=== PATIENT | male | born 1965 | race Two or more races ===

== ENCOUNTER 2020-01-10 00:24 | Inpatient (IN) | payer OTHER ==
[~2020-01-10] VITALS: Ht 182.9 cm; Wt 95.3 kg
--- NOTE | 2020-01-10 00:30 | NUR ---
PT [id number]. SOB X 3-4 HOURS AGO. PER RA, GIVEN ALBUTEROL 5MG. PT RR EVEN AND UNLABORED. VSS. SAT 100 ON ROOM AIR. AWAITING MD FOR EVAL. ROLAND SHARPE TO MON.
[2020-01-10] MEDS ORDERED: ASPIRIN 81 MG TAB.CHEW PO ONE (01:00)
[2020-01-10] MEDS ORDERED: NITROGLYCERIN 0.4 MG/TAB BOTTLE ONE ×2 (01:00→12:05)
[2020-01-10] MEDS ORDERED: ASPIRIN 81 MG TAB.CHEW ONE (01:00)
[2020-01-10] MEDS ORDERED: NITROGLYCERIN 0.4 MG/TAB BOTTLE SL ONE (01:00)
[2020-01-10 01:16] LABS: BASOPHILS # (AUTO) 0.1 /CMM (0.0-0.2); BASOPHILS % (AUTO) 1.1 % (0.0-2.0); EOSINOPHILS % (AUTO) 3.3 % (0.0-6.0); HEMATOCRIT 37 % (39-51); HEMOGLOBIN 11.5 g/dL (13.5-17.5); LYMPHOCYTES # (AUTO) 1.4 /CMM (0.8-4.8); LYMPHOCYTES % (AUTO) 22.9 % (20.0-44.0); MEAN CORPUSCULAR HGB CONC 31 g/dl (31.0-36.0); MEAN CORPUSCULAR VOLUME 82 fL (80-96); MONOCYTES # (AUTO) 0.6 /CMM (0.1-1.30); MONOCYTES % (AUTO) 9.1 % (2.0-12.0); NEUTROPHILS # (AUTO) 3.9 /CMM (1.8-8.9); NEUTROPHILS % (AUTO) 63.6 % (43.0-81.0); PLATELET COUNT (AUTO) 287 /CMM (150-450); RED BLOOD CELL COUNT(AUTO) 4.51 MIL/uL (4.5-6.0); WHITE BLOOD COUNT (AUTO) 6.1 K/uL (4.3-11.0)
--- NOTE | 2020-01-10 01:21 | NUR ---
xray at bedside
[2020-01-10 01:26] LABS: CALCIUM, SERUM 8.2 mg/dL (8.5-10.1); CREATININE 1.1 mg/dL (0.6-1.3); POTASSIUM 4.6 mmol/L (3.5-5.1)
--- NOTE | 2020-01-10 02:41 | NUR ---
Patient is resting comfortably in bed with eyes closed. Easily aroused. VSS.
--- NOTE | 2020-01-10 03:04 | NUR ---
Patient is resting comfortably in bed with eyes closed. VSS.
[2020-01-10] MEDS ORDERED: DIGO125T PO (04:29)
[2020-01-10] MEDS ORDERED: CARV25TA2 PO (04:30)
[2020-01-10] MEDS ORDERED: RIVA10TA PO (04:31)
[2020-01-10] MEDS ORDERED: FURO40TA5 PO (04:31)
[2020-01-10] MEDS ORDERED: ATOR40TA PO (04:34)
[2020-01-10] MEDS ORDERED: LOSA25TA27 PO (04:34)
[2020-01-10] MEDS ORDERED: ASPI-1169 PO (04:35)
[2020-01-10 05:00] VITALS: BP 147/84
--- NOTE | 2020-01-10 05:00 | NUR ---
rn notes: arrived to the unit, received report from raul parnell.
--- NOTE | 2020-01-10 05:00 | NUR ---
PT TRANSFERED PER [facility] PROTOC[facility]
[2020-01-10 05:15] VITALS: BP 147/84
[2020-01-10] MEDS ORDERED: ACETAMINOPHEN 325 MG TABLET PO PRN (05:30)
--- NOTE | 2020-01-10 05:55 | NUR ---
ADMISSION NOTES: RECEIVED REPORT FROM CLIVE RAMIRES RN, PER REPORT ADMITTING ORDERS OBTAINED. PT WAS BROUGHT TO THE UNIT VIA GURNEY. TRANSFERRED TO BED. PT A/O X3 PER REPORT, ON RA RESPIRATIONS EVEN AND UNLABORED HOWEVER VERY DROWSY, SLEEPY. PT DENIES ANY SOB AND CHEST PAIN. IV ACCESS PATENT AND FLUSHING WELL, ON HL. UNABLE TO DO SKIN ASSESSMENT PT VERY SLEEPY AND DROWSY, WOKE THE PT UP MANY TIMES, WILL OPEN HIS EYES AND SAY ITS OKAY, THEN WILL GO BACK TO SLEEP. ALSO PT GOT UPSET THE RN PLASTICS CAME TO DRAW BLOOD AND HAD TO POKE HIM TWICE, SINCE THEN PT CHANGED HIS MOOD AND REFUSED SKIN ASSESSMENT, INVENTORY OF BELONGING COMPLETED BY JANNETTE HAWKINS AND ASSIGNED RN. PT HAS 2 LUGGAGE, SEARCHED AND REMOVED ALL CONTRABAND AND HOME MEDICATION AND MARIJUANA. FILLED HOME MEDS BOTTLE WILL BE SEND TO PHARMACY IN AM, NO NARCOTICS NOTED, PER CONTRABAND AND MARIJUANA KEPT IN 3WEST SAFE. TRIED TO ORIENT PT TO UNIT POLICY AND HOURLY ROUNDING, USE OF CALL LIGHT SYSTEM, HOWEVER DUE TO DROWSINESS, PT ALREADY SLEEPING WHILE RN HAVEN'T FINISH EXPLAINING. PLACED ON TELE MONITORING, ON AFIB HR 71. VS TAKEN AND RECORDED. SAFETY PRECAUTIONS FOR FALL INITIATED, CALL LIGHT IN REACH, WILL CONTINUE MONITORING PT.
--- NOTE | 2020-01-10 06:04 | NUR ---
RN NOTES: UNABLE TO GET CONSENT FOR CT-ANGIO DUE TO PT STATUS, VERY SLEEPY/DROWSY, UNABLE TO GET DEFINITE INFORMATION.
--- NOTE | 2020-01-10 06:15 | NUR ---
RN NOTES: PT AMBULATE TO THE BATHROOM WITH STEADY GAIT AT 0615AM, VOIDED FREELY. THEN ASSISTED BACK TO BED.
--- NOTE | 2020-01-10 06:37 | NUR ---
RN CLOSING NOTES: PT REMAINS SLEEPING, RESPONSIVE TO LIGHT TOUCH, WILL WAKE UP THEN DOZE OFF AGAIN, IV ACCESS REMAINS PATENT AND FLUSHING WELL, ON HL, NO S/S OF IV INFILTRATION NOTED. REFUSED SCD DESPITE PROVIDING EDUCATION, STILL REFUSING SKIN ASSESSMENT. CURRENTLY NPO FOR CT ANGIO WITH 3D IMAGE, WILL RELAY TO DAY RN IN OBTAINING CONSENT. REMAINS ON TELE AFB HR 70. APPEARS CALM AND COMFORTABLE, NO FACIAL GRIMACE NOTED, VS REMAINS STABLE NEEDS ATTENDED. SAFETY PRECAUTIONS FOR FALL REMAINS ENGAGED, CALL LIGHT IN REACH, WILL ENDORSE TO DAY RN FOR CONTINUITY OF CARE.
--- NOTE | 2020-01-10 07:39 | NUR ---
DIGITAL EXPERIENCE MANAGER OPENING NOTE RECEIVED PATIENT IN BED SLEEPING COMFORTABLY. PATIENT IN NO ACUTE DISTRESS. NO SOB NOTED. PATIENT BREATHING IS EVEN AND UNLABORED. PATIENT ON TELE MONITORING READING AFIB HR 79. PATIENT BED ALARM IS ON. SAFETY PRECAUTIONS IN PLACE. PATIENT BED IS IS LOCKED AND IN LOWEST POSITION. CALL LIGHT WITHIN REACH. WILL CONTINUE TO MONITOR.
[2020-01-10 08:00] VITALS: BP 137/90
[2020-01-10] MEDS: ASPIRIN 81 MG TAB.CHEW PO SCH (08:36)
[2020-01-10] MEDS: LOSARTAN POTASSIUM 25 MG TABLET PO SCH (08:36)
[2020-01-10] MEDS: CARVEDILOL 12.5 MG TABLET PO SCH (08:37)
[2020-01-10] MEDS: FUROSEMIDE 40 MG TABLET PO SCH (08:37)
[2020-01-10] MEDS ORDERED: IV NS 0.9% 250 ML IV ONE (10:48)
[2020-01-10] MEDS ORDERED: IOHEXOL-350 100 ML VIAL IV ONE (10:48)
[2020-01-10] MEDS ORDERED: METOPROLOL TARTRATE INJ 5 MG/5 ML AMPUL ONE ×2 (11:11→11:30)
--- NOTE | 2020-01-10 11:28 | NUR ---
PRELIMINARY ECHOCARDIOGRAM SHOWED EF 25-30%~. RN ADVISED OF INITIAL FINDING.
[2020-01-10] MEDS ORDERED: DIGOXIN 0.125 MG TABLET PO SCH (13:00)
[2020-01-10 16:00] VITALS: BP 127/74
[2020-01-10] MEDS ORDERED: RIVAROXABAN 10 MG TABLET PO SCH (17:00)
--- NOTE | 2020-01-10 17:00 | NUR ---
GANG KNIFE FISH CHOPPER NOTE DR. DUTTA INQUIRED ABOUT CTA RESULTS. NO RESULTS AT THIS TIME FOR THE CTA HEART. CALLED [facility], AND [facility] STATED TO CALL [facility] TO HAVE READING FOR CTA DONE SOONER. CALLED [facility] AND THEY STATED IT WILL BE DONE SOON THEY HAVE A TECH AVAILABLE FOR READING. CALLED BACK TO [facility] IN RADIOLOGY FOR READING BECAUSE RESULTS HAVE NOT SHOWN. PER [facility] THEY HAVE NO TECH AT THIS TIME FOR READING THE CTA.
[2020-01-10] MEDS ORDERED: ATORVASTATIN 40 MG TABLET PO SCH (18:00)
--- NOTE | 2020-01-10 18:18 | NUR ---
FERRY BOAT CAPTAIN NOTES CTA RESULTS CAME IN FROM [facility], DR. GUERRIER REPORTED RESULTS. NOTIFIED DR. DUTTA AND MADE AWARE AT THIS TIME.
--- NOTE | 2020-01-10 18:27 | NUR ---
TREATING PLANT PUMPER NOTE DR. DUTTA NOTIFIED OF CTA RESULTS. PER MD NEEDS TO BE TRANSFERRED FOR HEART CATH. NOTIFIED [facility]NAG[facility] FOR ARRANGEMENT.
--- NOTE | 2020-01-10 18:45 | NUR ---
JOB INTERVIEWER CLOSING NOTE PATIENT IN BED RESTING COMFORTABLY. PATIENT IN NO ACUTE DISTRESS. NO SOB NOTED. PATIENT BREATHING IS EVEN AND UNLABORED. PATIENT KEPT CLEAN, DRY AND COMFORTABLE THROUGHOUT SHIFT. PATIENT NEEDS AND CONCERNS ADDRESSED. ENDORSED DISCHARGE TO NEON TECHNICIAN, AWAITING CONFIRMATION WITH [facility] WITH DISCHARGE PLANNING TO TRANSFER WITH [facility] CATH. PATIENT ON CARDIAC MONITORING READING AFIB HR 78. PATIENT BED IS LOCKED AND IN LOWEST POSITION. CALL LIGHT WITHIN REACH. WILL ENDORSE CARE TO PM SHIFT FOR [facility].
[2020-01-10 20:26] VITALS: BP 143/94
--- NOTE | 2020-01-10 20:28 | NUR ---
rn acute dialysis: received report form ashley parnell at 1905. pt in bed, sleeping, responsive to tactile stimuli. pt is a/o x3 on ra denies any chest pain or sob at this time. iv access patent and flushing well, on hl. pt prefers to wear street clothes. pt s/p cta today, result relayed to dr juarez, with order for dc and transfer to higher level of care-contracted hospital- [facility] on board-awaiting for hospital acceptance possibly [facility], most likely transfer will be tomorrow. safety precautions for fall initiated, call light in reach, will continue monitoring pt.
[2020-01-11] VITALS: BP 124/75
[2020-01-11 04:00] VITALS: BP 129/92
--- NOTE | 2020-01-11 06:41 | NUR ---
END OF SHIFT REPORT: PT ABLE TO SLEEP WELL THE ENTIRE NIGHT. DENIES ANY SOB AND CHEST PAIN. IV ACCESS REMAINS PATENT AND FLUSHING WELL, ON HL. NO S/S OF IV INFILTRATION NOTED. REMAINS AFIB HR 71. FOR TRANSFER TO HIGHER LEVEL OF CARE WITH CONTRACTED HOSPITAL,CM ON BOARD TO ASSIST. FOR LEFT HEART CATH DUE TO SEVERE STENOSIS, EF 20-25%. VS REMAINS STABLE, NEEDS ATTENDED. SAFETY PRECAUTIONS FOR FALL REMAINS ENGAGED, CALL LIGHT IN REACH, WILL ENDORSE TO DAY RN FOR CONTINUITY OF CARE.
--- NOTE | 2020-01-11 07:30 | NUR ---
Tele/RN Opening note Received patient AOx4, Able to responds all stimuli. Pt does no c/o pain or any discomfort. Skin is warm to touch, clean/dry, intact IV site. Respiratory even and unlabored, no sob or distress observed. Kept lower position of bed with elevated HOB. Call light within reach, will continue to monitor.
[2020-01-11 08:00] VITALS: BP 150/94
[2020-01-11] MEDS: FUROSEMIDE 40 MG TABLET PO SCH (09:08)
[2020-01-11] MEDS: ASPIRIN 81 MG TAB.CHEW PO SCH (09:08)
[2020-01-11] MEDS: LOSARTAN POTASSIUM 25 MG TABLET PO SCH (09:09)
[2020-01-11] MEDS: CARVEDILOL 12.5 MG TABLET PO SCH (09:09)
[2020-01-11 12:00] VITALS: BP 127/71
--- NOTE | 2020-01-11 13:30 | NUR ---
Patient transferred to [facility], given report [facility]/Tasha RN at [phone], returned all belongings to patient. Also given discharge instruction to patient. Patient in stable condition, refused take wound picture.
--- NOTE | 2020-01-12 08:08 | NUR ---
Social service consult requested by Dr Lujan for homelessness. [facility] is unable to assess pt due to pt being transferred to [facility] on 01/11/2020.
== END 2020-01-11 13:25 | disposition short-term general hospital (02) | DRG 198 ==
LOC: ER 00:25 → TELE 04:35
PROVIDERS: ADMIT Internal Medicine; ATTEND Internal Medicine
DX: I25.110 Atherosclerotic heart disease of native coronary artery with unstable angina pectoris (principal); I11.0 Hypertensive heart disease with heart failure; I50.22 Chronic systolic (congestive) heart failure; I48.20 Chronic atrial fibrillation, unspecified; Z59.0 Homelessness; Z79.01 Long term (current) use of anticoagulants; Z95.5 Presence of coronary angioplasty implant and graft; I25.5 Ischemic cardiomyopathy; I25.2 Old myocardial infarction; Z79.899 Other long term (current) drug therapy
CPT/HCPCS: 36415; 71045-TC; 75574; 80048-TC; 80162-TC; 84484-TC; 85025-TC; 85610-TC; 85730-TC; 87081-TC; 93307-TC; G0378; J3490; J7050; Q9967

== ENCOUNTER 2020-04-29 19:58 | Emergency (ER) | payer OTHER ==
[~2020-04-29] VITALS: Ht 182.9 cm; Wt 95.3 kg
[~2020-04-29 19:58] MED LIST: ASPI-1169 PO; ATOR40TA PO; CARV25TA2 PO; DIGO125T PO; FURO40TA5 PO; LOSA25TA27 PO; RIVA10TA PO
[2020-04-29] MEDS ORDERED: oxyCODONE/APAP (5/325 MG) 1 UDTAB TABLET ONE ×2 (20:35→20:37)
[2020-04-29] MEDS: oxyCODONE/APAP (5/325 MG) 1 UDTAB TABLET PO ONE (20:39)
--- NOTE | 2020-04-29 20:40 | NUR ---
PATIENT CAME TO ER BED 10 C/O LOWER ABDOMINAL PAIN. PATIENT STATES THAT HE HAS HX OF HERNIA. AAOX4. NO SOB. BREATHING EVENLY AND UNLABORED ON ROOM AIR.
[2020-04-29 21:41] VITALS: BP 132/88
--- NOTE | 2020-04-29 21:41 | NUR ---
Patient discharged to home in stable condition. Written and verbal after care instructions given. Patient verbalizes understanding of instruction.
== END 2020-04-29 21:42 | disposition home or self-care (01) ==
LOC: ER 20:03
DX: M25.521 Pain in right elbow (principal); K40.90 Unilateral inguinal hernia, without obstruction or gangrene, not specified as recurrent; I10 Essential (primary) hypertension; I25.2 Old myocardial infarction; Z95.5 Presence of coronary angioplasty implant and graft; Z88.8 Allergy status to other drugs, medicaments and biological substances; Z79.82 Long term (current) use of aspirin; Z79.899 Other long term (current) drug therapy
CPT/HCPCS: 73080-TC

== ENCOUNTER 2020-06-05 00:35 | Inpatient (IN) | payer OTHER ==
[~2020-06-05] VITALS: Ht 180.3 cm; Wt 97.3 kg
[2020-06-05 00:57] LABS: BASOPHILS # (AUTO) 0.1 /CMM (0.0-0.2); BASOPHILS % (AUTO) 1.2 % (0.0-2.0); EOSINOPHILS % (AUTO) 0.6 % (0.0-6.0); HEMATOCRIT 37 % (39-51); HEMOGLOBIN 11.5 g/dL (13.5-17.5); LYMPHOCYTES # (AUTO) 1.3 /CMM (0.8-4.8); LYMPHOCYTES % (AUTO) 24.4 % (20.0-44.0); MEAN CORPUSCULAR HGB CONC 31 g/dl (31.0-36.0); MEAN CORPUSCULAR VOLUME 83 fL (80-96); MONOCYTES # (AUTO) 0.4 /CMM (0.1-1.30); MONOCYTES % (AUTO) 8.1 % (2.0-12.0); NEUTROPHILS # (AUTO) 3.4 /CMM (1.8-8.9); NEUTROPHILS % (AUTO) 65.7 % (43.0-81.0); PLATELET COUNT (AUTO) 267 /CMM (150-450); RED BLOOD CELL COUNT(AUTO) 4.49 MIL/uL (4.5-6.0); WHITE BLOOD COUNT (AUTO) 5.2 K/uL (4.3-11.0)
[2020-06-05 01:10] LABS: CALCIUM, SERUM 8.5 mg/dL (8.5-10.1); CREATININE 1.8 mg/dL (0.6-1.3); POTASSIUM 4.5 mmol/L (3.5-5.1)
--- NOTE | 2020-06-05 01:11 | NUR ---
BIB EMS C/O SOB X1 DAY. "I FEEL LIKE I CANT CATCH MY BREATH. I WAS TESTED FOR COVID-19 X2 AND BOTH WAS NEGATIVE" PT AOX4, PT NOTED SOB, HOWEVER LUNG SOUNDS CLEAR, NO NVD AT THIS TIME. PT GOWNED AND PLACED ON MONITOR WAITING FOR MD TOMLINSON.
[2020-06-05] MEDS ORDERED: DILTIAZEM HCL 25 MG IV ONE ×2 (01:15→02:21)
[2020-06-05 01:23] LABS: ALBUMIN 2.9 g/dL (3.4-5.0); BILIRUBIN,DIRECT 0.9 mg/dL (0.0-0.2); BILIRUBIN,TOTAL 2.1 mg/dL (0.2-1.0); TOTAL PROTEIN, SERUM 8.2 g/dL (6.4-8.2)
[2020-06-05] MEDS ORDERED: DILTIAZEM HCL 50 MG IV IV ONE (01:30)
--- NOTE | 2020-06-05 01:33 | NUR ---
COVID SWAB SENT TO LAB
[2020-06-05] MEDS ORDERED: FUROSEMIDE 40 MG/4 ML VIAL IV ONE (02:00)
[2020-06-05] MEDS ORDERED: FUROSEMIDE 40 MG/4 ML VIAL ONE (02:02)
[2020-06-05] MEDS ORDERED: DILTIAZEM HCL IV 125 MG in IV NS 0.9% 100 ML IV PRN (02:30)
--- NOTE | 2020-06-05 02:33 | NUR ---
CALLED [facility], SPOKE TO KIT FOR F/U PENDING CXR RESULTS. TO BE READ NEXT.
--- NOTE | 2020-06-05 03:37 | NUR ---
REPORT GIVEN TO SHERLY SHABAZZ FOR CONTINUITY OF CARE BED 307-2
--- NOTE | 2020-06-05 03:47 | NUR ---
PT TRANSFERRED TO TELE PER [facility]S PROTOCOL.
--- NOTE | 2020-06-05 03:50 | NUR ---
MOTORIZED SQUAD CAPTAIN: ADMISSION 54 y/o male admitted for shortness of breath, Dx Heart Failure. A/O x4 skin checked done with JANNETTE Stout. Right elbow redness and swelling, denies pain. On O2 2L via NC, dyspnea with exertion, O2 sat in mid 90's. Patient ambulates independently, reports he's homeless. Safety measure discussed, verbalized understanding.
[2020-06-05 03:51] VITALS: BP 144/80
[2020-06-05 04:00] VITALS: BP 144/80
[2020-06-05] MEDS ORDERED: ZOLPIDEM TARTRATE 5 MG TABLET PO PRN (04:30)
[2020-06-05] MEDS ORDERED: MAGNESIUM HYDROXIDE 30 ML UDC PO PRN (04:30)
[2020-06-05] MEDS ORDERED: ACETAMINOPHEN 325 MG TABLET PO PRN (04:30)
[2020-06-05] MEDS ORDERED: Z GUARD REMEDY 2 OZ OINT TP PRN (04:30)
[2020-06-05] MEDS ORDERED: ONDANSETRON HCL/PF 4 MG/2 ML VIAL IVP PRN (04:30)
[2020-06-05] MEDS ORDERED: SPIR25TA6 PO (04:31)
[2020-06-05] MEDS ORDERED: GABA-532 PO (04:31)
--- NOTE | 2020-06-05 06:33 | NUR ---
DIVISION FIELD INSPECTOR: END OF SHIFT REPORT Patient in bed, O2 at 2L NC with O2 sat in high 90's, dyspnea with exertion, no cough, no fever. Afib controlled HR 99 in the Tele monitor. Denies chest pain. On 2gm Na and Fluid restriction 1000ml/day. Voiding urine, no difficulty. Homeless per report, CM for consult. Bilateral buttock rash with blister, right elbow redness. Wound consult to follow. Will endorse to oncoming RN. Fall precaution maintained.
[2020-06-05 07:06] LABS: CALCIUM, SERUM 8.4 mg/dL (8.5-10.1); CREATININE 1.5 mg/dL (0.6-1.3); POTASSIUM 3.9 mmol/L (3.5-5.1)
[2020-06-05 08:00] VITALS: BP 130/84
[2020-06-05] MEDS: ASPIRIN 81 MG TAB.CHEW PO SCH (08:15)
[2020-06-05] MEDS: LOSARTAN POTASSIUM 25 MG TABLET PO SCH (08:15)
[2020-06-05] MEDS: RIVAROXABAN 10 MG TABLET PO SCH (08:17)
[2020-06-05] MEDS: HYDROCODONE/APAP 5/325MG 1 EACH TABLET PO PRN ×3 (08:25→21:31)
--- NOTE | 2020-06-05 08:26 | NUR ---
RN OPENING NOTE Patient is resting in bed, A/O x4, showing no signs of acute distress or SOB, saturating 95% on 2L NC. Tele monitor A-fib + a flutter HR 94. Patient is complaining of pain of inguinal hernia that he stated he has had for over a year now, norco given. IV line in LAC #18g is clean and intact s/l. Patient is on fluid restriction 1000ml/day per MD order. Bed is in lowest position, side rails x3 in upright position, call light is within reach, fall safety and aspiration precautions enforced. Will continue with plan of care.
--- NOTE | 2020-06-05 08:37 | NUR ---
RN NOTE Reviewed home meds with patient and he stated he no longer takes Digoxin or spironolactone. Pharmacy made aware and discontinued from med recon per pharmacy.
[2020-06-05] MEDS ORDERED: DIGOXIN 0.125 MG TABLET PO SCH ×2 (09:00→13:00)
[2020-06-05] MEDS ORDERED: CARVEDILOL 12.5 MG TABLET PO SCH (09:00)
[2020-06-05] MEDS ORDERED: HEPARIN SODIUM, PORCINE 5000 UNITS/1 ML VIAL SQ SCH (09:00)
[2020-06-05] MEDS ORDERED: CARVEDILOL 25 MG TABLET PO SCH (09:00)
[2020-06-05] MEDS: FUROSEMIDE 40 MG/4 ML VIAL IV SCH ×3 (09:51→17:06)
[2020-06-05] MEDS ORDERED: METOPROLOL TARTRATE 50 MG TABLET PO SCH (10:00)
[2020-06-05 14:06] LABS: BILIRUBIN,DIRECT 0.9 mg/dL (0.0-0.2); BILIRUBIN,TOTAL 1.9 mg/dL (0.2-1.0)
[2020-06-05 16:00] VITALS: BP 102/53
[2020-06-05] MEDS: CARVEDILOL 12.5 MG TABLET PO SCH (17:00)
[2020-06-05] MEDS: ATORVASTATIN 40 MG TABLET PO SCH (17:11)
--- NOTE | 2020-06-05 18:45 | NUR ---
RN CLOSING NOTE Patient is resting in bed, A/O x4, showing no signs of acute distress or SOB, saturating 95% on 2L NC. Tele monitor A-fib + a flutter HR 90s. Patient took shower today. Intak 440mls, output 700mls. IV line in LAC #18g is clean and intact s/l. All patient needs met, all due medications given, patient kept clean and dry throughout shift, patient took shower today. Bed is in lowest position, side rails x3 in upright position, call light is within reach, fall safety and aspiration precautions enforced. Will endorse to restaurant shift supervisor for [facility].
--- NOTE | 2020-06-05 19:29 | NUR ---
MANAGER SOCIAL RESPONSIBILITY RECEIVE PT IN BED PATIENT A/O X 3, STABLE NOT IN DISTRESS. NO C/O OF PAIN, TELE AFIB CONTOLLED 81 HR +A FLUTTER, WILL CONTINUE TO MONITOR
[2020-06-05 20:00] VITALS: BP 100/76
[2020-06-06] VITALS: BP 115/60
[2020-06-06] MEDS: HYDROCODONE/APAP 5/325MG 1 EACH TABLET PO PRN ×2 (03:39→08:19)
[2020-06-06 04:00] VITALS: BP 101/60
--- NOTE | 2020-06-06 05:57 | NUR ---
BROACH SETTER ON CARDIAC MONITORING CONTROLLED A-FIB WITH PVC'S 86 HR HAD AM SHOWER, NO S/S OF DISTRESS, NEEDS ATTENDED AND ANTICIPATED, KEPT CLEAN, DRY AND COMFORTABLE. MONITORED FOR PAIN. TOLERATING ROOM AIR. SAFETY MEASURES AT ALL TIMES. WILL ENDORSE NEXT SHIFT POC. NO COMPLAIN OF CHEST PAIN
[2020-06-06 06:42] LABS: BASOPHILS # (AUTO) 0.1 /CMM (0.0-0.2); BASOPHILS % (AUTO) 1.2 % (0.0-2.0); EOSINOPHILS % (AUTO) 2.7 % (0.0-6.0); HEMATOCRIT 36 % (39-51); HEMOGLOBIN 10.8 g/dL (13.5-17.5); LYMPHOCYTES # (AUTO) 1.1 /CMM (0.8-4.8); LYMPHOCYTES % (AUTO) 23.8 % (20.0-44.0); MEAN CORPUSCULAR HGB CONC 30 g/dl (31.0-36.0); MEAN CORPUSCULAR VOLUME 83 fL (80-96); MONOCYTES # (AUTO) 0.4 /CMM (0.1-1.30); NEUTROPHILS # (AUTO) 3.1 /CMM (1.8-8.9); NEUTROPHILS % (AUTO) 64.3 % (43.0-81.0); PLATELET COUNT (AUTO) 216 /CMM (150-450); RED BLOOD CELL COUNT(AUTO) 4.32 MIL/uL (4.5-6.0); WHITE BLOOD COUNT (AUTO) 4.8 K/uL (4.3-11.0)
--- NOTE | 2020-06-06 07:32 | NUR ---
RN OPENING NOTE Patient is resting in bed, A/O x4, showing no signs of acute distress or SOB, saturating 95% on 2L NC. NSR 80s. Patient is IV line in LAC #18g is clean and intact s/l. Patient is on fluid restriction 1000ml/day per MD order. Bed is in lowest position, side rails x3 in upright position, call light is within reach, fall safety and aspiration precautions enforced. Will continue with plan of care.
[2020-06-06 08:00] VITALS: BP 121/63
[2020-06-06 08:05] VITALS: BP 121/63
[2020-06-06] MEDS: ASPIRIN 81 MG TAB.CHEW PO SCH (08:17)
[2020-06-06] MEDS: RIVAROXABAN 10 MG TABLET PO SCH (08:17)
[2020-06-06] MEDS: CARVEDILOL 12.5 MG TABLET PO SCH ×2 (08:18→16:23)
[2020-06-06] MEDS: LOSARTAN POTASSIUM 25 MG TABLET PO SCH (08:18)
[2020-06-06 08:42] LABS: ALBUMIN 2.7 g/dL (3.4-5.0); BILIRUBIN,TOTAL 1.3 mg/dL (0.2-1.0); CALCIUM, SERUM 8.1 mg/dL (8.5-10.1); CREATININE 1.7 mg/dL (0.6-1.3); MAGNESIUM 1.9 mg/dL (1.8-2.4); PHOSPHORUS 3.5 mg/dL (2.5-4.9); TOTAL PROTEIN, SERUM 7.5 g/dL (6.4-8.2)
[2020-06-06] MEDS: FUROSEMIDE 40 MG TABLET PO SCH (09:35)
[2020-06-06] MEDS: GABAPENTIN 100 MG CAPSULE PO SCH ×2 (12:04→16:23)
[2020-06-06 16:00] VITALS: BP_SYST 129; BP_SYST 97; BP_DIAS 59; BP_DIAS 62
[2020-06-06] MEDS: ATORVASTATIN 40 MG TABLET PO SCH (18:29)
--- NOTE | 2020-06-06 18:38 | NUR ---
RN CLOSING NOTE Patient is resting in bed, A/O x4, showing no signs of acute distress or SOB, saturating 95% on 2L NC. NSR 80s. Patient is IV line in LAC #18g is clean and intact s/l. Total intake this shift is 500mls. Per Dr. Rob, patient is considered "disabled" due to EF of 30%, patient is not going to be discharged. CM to follow-up in scheduling OP appt for ICD or for placement at a facility. All patient needs met, all due medications given, patient is independent with care. Bed is in lowest position, side rails x3 in upright position, call light is within reach, fall safety and aspiration precautions enforced. Will endorse to shift commander.
--- NOTE | 2020-06-06 19:10 | NUR ---
MS RN NOTES RECEIVED PT IN BED AWAKE AND ABLE TO MAKE NEEDS KNOWN. PT A/O X3. RESPIRATIONS EVEN AND UNLABORED WITH NO S/S OF ACUTE DISTRESS OR SOB NOTED. NO COMPLAINTS OF PAIN AT THIS TIME. PT NOTED WITH LAC #18G PATENT AND INTACT AND SL. SAFETY MEASURES IN PLACE WITH BED IN LOWEST LOCKED POSITION WITH SIDE RAILS UP X2. CALL LIGHT WITHIN REACH. WILL CONTINUE TO MONITOR.
--- NOTE | 2020-06-06 20:05 | NUR ---
MS RN NOTES PT REFUSED PHOTOS AT THIS TIME. WILL CONTINUE TO MONITOR.
[2020-06-06 20:23] VITALS: BP 95/71
[2020-06-07 06:44] LABS: BASOPHILS % (AUTO) 0.8 % (0.0-2.0); EOSINOPHILS % (AUTO) 1.9 % (0.0-6.0); HEMATOCRIT 35 % (39-51); HEMOGLOBIN 10.8 g/dL (13.5-17.5); LYMPHOCYTES % (AUTO) 20.2 % (20.0-44.0); MEAN CORPUSCULAR HGB CONC 31 g/dl (31.0-36.0); MEAN CORPUSCULAR VOLUME 81 fL (80-96); MONOCYTES # (AUTO) 0.6 /CMM (0.1-1.30); MONOCYTES % (AUTO) 11.9 % (2.0-12.0); NEUTROPHILS # (AUTO) 3.2 /CMM (1.8-8.9); NEUTROPHILS % (AUTO) 65.2 % (43.0-81.0); PLATELET COUNT (AUTO) 237 /CMM (150-450); RED BLOOD CELL COUNT(AUTO) 4.28 MIL/uL (4.5-6.0); WHITE BLOOD COUNT (AUTO) 4.9 K/uL (4.3-11.0)
[2020-06-07 07:06] LABS: CALCIUM, SERUM 8.2 mg/dL (8.5-10.1); CREATININE 1.5 mg/dL (0.6-1.3); MAGNESIUM 1.9 mg/dL (1.8-2.4); PHOSPHORUS 3.3 mg/dL (2.5-4.9); POTASSIUM 4.5 mmol/L (3.5-5.1)
--- NOTE | 2020-06-07 07:18 | NUR ---
MS/RN Opening note Patient received from vision teacher. A/O X4, vital signs stable, denies any chest pain, pressure or discomfort at this time. Heplock to left AC flushing well with saline, no signs of infiltration. Continues on 1 liter fluid restriction, patient aware of this, also noted on whiteboard. Safety measures in place, call light within reach. Will continue to monitor and ensure safety.
--- NOTE | 2020-06-07 07:18 | NUR ---
MS RN NOTES PT IN BED AWAKE AND ABLE TO MAKE NEEDS KNOWN. PT A/O X3. RESPIRATIONS EVEN AND UNLABORED WITH NO S/S OF ACUTE DISTRESS OR SOB NOTED THROUGHOUT SHIFT. NO COMPLAINTS OF PAIN AT THIS TIME. PT NOTED WITH LAC #18G PATENT AND INTACT AND SL. SAFETY MEASURES IN PLACE WITH BED IN LOWEST LOCKED POSITION WITH SIDE RAILS UP X2. CALL LIGHT WITHIN REACH. WILL ENDORSE TO ONCOMING NURSE FOR [facility].
[2020-06-07 08:00] VITALS: BP 127/71
[2020-06-07 08:02] VITALS: BP 127/71
[2020-06-07 08:39] VITALS: BP 127/71
[2020-06-07] MEDS: GABAPENTIN 100 MG CAPSULE PO SCH ×2 (08:39→13:07)
[2020-06-07] MEDS: FUROSEMIDE 40 MG TABLET PO SCH (08:39)
[2020-06-07] MEDS: ASPIRIN 81 MG TAB.CHEW PO SCH (08:39)
[2020-06-07] MEDS: LOSARTAN POTASSIUM 25 MG TABLET PO SCH (08:39)
[2020-06-07] MEDS: CARVEDILOL 12.5 MG TABLET PO SCH (08:39)
[2020-06-07] MEDS: RIVAROXABAN 10 MG TABLET PO SCH (08:45)
--- NOTE | 2020-06-07 09:55 | NUR ---
MS/RN S/B DEO Jasmine Seen by INVESTIGATOR FRAUD - patient cleared for discharge, awaiting case management to find placement.
[2020-06-07] MEDS ORDERED: SPIRONOLACTONE 25 MG TABLET PO SCH (10:00)
--- NOTE | 2020-06-07 11:29 | NUR ---
WOUND CARE CONSULT: PT REFUSED SKIN ASSESSMENT. PT IS AMBULATORY AND CONTINENT PER NURSING STAFF. WILL SEE PT AT LATER TIME IF POSSIBLE.
--- NOTE | 2020-06-07 12:48 | NUR ---
MS/color dipper address Patient to be discharged to following address: [address] [place], [address] New prescriptions to be sent to: [facility] [address] [place], [address]
[2020-06-07] MEDS ORDERED: FURO40TA5 PO (14:14)
[2020-06-07] MEDS ORDERED: SPIR25TA6 PO (14:14)
[2020-06-07] MEDS ORDERED: CARV12.52 PO (14:14)
--- NOTE | 2020-06-07 14:38 | NUR ---
MS/literacy teacher instructions Exit care prepared and signed by patient. Educated as to the importance of making appointment at [facility] for follow up, provided with number and address of medical building where appointment will take place. Also told to make appointment with PCP. Provided with copies of medical record to take to both appointments. Discharge medications explained to patient, including what each new drug was for and possible side effects, patient stating understanding. Prescription sent electronically to patient's preferred pharmacy ([facility]) located on [facility]. Heplock and name bands removed, at patient's request, provided with sandwich to eat later this evening. All personal belongings returned to patient, including medications from pharmacy. All accounted or and signed for on belongings list. Awaiting transport to sisal picker.
--- NOTE | 2020-06-07 16:16 | NUR ---
MS/coater helper Patient discharged to independent living facility in stable condition. All personal belongings with patient and signed for on belongings list, reminded to follow up and make appointment to see ophthalmic medical technologist at [facility] [place]. Escorted to main lobby by JANNETTE via wheelchair.
== END 2020-06-07 16:26 | disposition home health service (06) | DRG 194 ==
LOC: ER 00:38 → TELE 03:28 → MED 06-06 09:36
PROVIDERS: ADMIT Registered Nurse; ATTEND Registered Nurse
DX: I11.0 Hypertensive heart disease with heart failure (principal); I48.91 Unspecified atrial fibrillation; I25.5 Ischemic cardiomyopathy; K74.60 Unspecified cirrhosis of liver; N39.0 Urinary tract infection, site not specified; N17.0 Acute kidney failure with tubular necrosis; I50.23 Acute on chronic systolic (congestive) heart failure; K40.90 Unilateral inguinal hernia, without obstruction or gangrene, not specified as recurrent; Z59.0 Homelessness; Z79.01 Long term (current) use of anticoagulants; Z79.82 Long term (current) use of aspirin; Z96.643 Presence of artificial hip joint, bilateral; Z87.891 Personal history of nicotine dependence; I25.10 Atherosclerotic heart disease of native coronary artery without angina pectoris; I25.2 Old myocardial infarction; Z95.5 Presence of coronary angioplasty implant and graft; Z88.8 Allergy status to other drugs, medicaments and biological substances; Z79.899 Other long term (current) drug therapy; F10.10 Alcohol abuse, uncomplicated; Y90.9 Presence of alcohol in blood, level not specified; F19.10 Other psychoactive substance abuse, uncomplicated; E66.9 Obesity, unspecified; Z68.29 Body mass index [BMI] 29.0-29.9, adult; G89.29 Other chronic pain; I27.21 Secondary pulmonary arterial hypertension; E11.9 Type 2 diabetes mellitus without complications
CPT/HCPCS: 36415; 71045-TC; 74018; 80048-TC; 80053-TC; 80061-TC; 80076-TC; 80162-TC; 82247-TC; 82248-TC; 83735-TC; 83880; 84100-TC; 84484-TC; 85025-TC; 87081-TC; 93307-TC; 97116-TC; 97530-TC; G0378; J1940; J3490; J7030

== ENCOUNTER 2020-06-10 22:53 | Emergency (ER) | payer OTHER ==
[~2020-06-10] VITALS: Ht 180.3 cm; Wt 99.8 kg
[~2020-06-10 22:53] MED LIST changes: +CARV12.52 PO; -CARV25TA2 PO; -DIGO125T PO; +GABA-532 PO; +SPIR25TA6 PO
[2020-06-10 23:30] VITALS: BP 108/81
--- NOTE | 2020-06-10 23:38 | NUR ---
PT AAOX4. BI C/O WORSENING BILAT FOOT SWELLING WHICH STATED PAINFUL TO WALK. PT RECENTLY D/C INPATIENT HERE. PLACED ON MONITOR AND PULSE OX. VSS. AWAITING MD FOR EVAL AND ORDERS.
--- NOTE | 2020-06-11 00:01 | NUR ---
ATOMIC SPECTROSCOPIST AT BEDSIDE FOR LABS
[2020-06-11 00:02] LABS: BASOPHILS % (AUTO) 0.6 % (0.0-2.0); HEMATOCRIT 34 % (39-51); HEMOGLOBIN 10.6 g/dL (13.5-17.5); LYMPHOCYTES # (AUTO) 1.3 /CMM (0.8-4.8); MEAN CORPUSCULAR HGB CONC 32 g/dl (31.0-36.0); MEAN CORPUSCULAR VOLUME 81 fL (80-96); MONOCYTES # (AUTO) 0.7 /CMM (0.1-1.30); MONOCYTES % (AUTO) 10.5 % (2.0-12.0); NEUTROPHILS # (AUTO) 4.3 /CMM (1.8-8.9); NEUTROPHILS % (AUTO) 67.9 % (43.0-81.0); PLATELET COUNT (AUTO) 262 /CMM (150-450); RED BLOOD CELL COUNT(AUTO) 4.16 MIL/uL (4.5-6.0); WHITE BLOOD COUNT (AUTO) 6.4 K/uL (4.3-11.0)
[2020-06-11 00:13] LABS: CALCIUM, SERUM 8.4 mg/dL (8.5-10.1); CREATININE 1.6 mg/dL (0.6-1.3); POTASSIUM 4.3 mmol/L (3.5-5.1)
[2020-06-11] MEDS ORDERED: FUROSEMIDE 40 MG/4 ML VIAL ONE (00:50)
[2020-06-11] MEDS ORDERED: FUROSEMIDE 40 MG/4 ML VIAL IV ONE (01:00)
--- NOTE | 2020-06-11 01:00 | NUR ---
PT AMBULATED TO THE RESTROOM.
--- NOTE | 2020-06-11 01:01 | NUR ---
COVID SWAB SENT TO LAB
--- NOTE | 2020-06-11 01:06 | NUR ---
MED LIST UPDATED
--- NOTE | 2020-06-11 01:25 | NUR ---
PER TIP PUNCHER DR. MARCUS WILL CALL BACK REGARDING PT.
--- NOTE | 2020-06-11 01:37 | NUR ---
KEYLA MOTT TALKING TO DR. MARCUS REGARDING TP ADMISSION.
--- NOTE | 2020-06-11 02:09 | NUR ---
COVID RESULT FAXED TO [facility] OPERATOR REQUESTED.
--- NOTE | 2020-06-11 02:50 | NUR ---
SPOKE TO ARA (LEGAL PROJECT MANAGER) WITH TRANSFER INFO RECEIVED. PT ACCEPTED TO [facility]. ROOM # 215-1 ACCEPTING MD MARCUS PHONE # FOR REPORT
--- NOTE | 2020-06-11 02:59 | NUR ---
Patient does not wish to proceed with medical care recommended by Dr. Holguin. Patient given information related to possible complications, up to and including , which could occur as a result of leaving the hospital at this time. Patient verbalizes understanding of risks involved due to leaving against medical advice. Patient has signed AMA form.
--- NOTE | 2020-06-11 02:59 | NUR ---
IV removed. Catheter intact and site benign. Pressure and 4x4 applied to site. No bleeding noted.
== END 2020-06-11 03:23 | disposition left against medical advice (07) ==
LOC: ER 22:56
DX: I11.0 Hypertensive heart disease with heart failure (principal); I50.9 Heart failure, unspecified; F17.210 Nicotine dependence, cigarettes, uncomplicated; Z59.0 Homelessness; I25.2 Old myocardial infarction; Z95.5 Presence of coronary angioplasty implant and graft; I48.91 Unspecified atrial fibrillation; Z79.899 Other long term (current) drug therapy; Z79.82 Long term (current) use of aspirin
CPT/HCPCS: 36415; 71045; 80048; 83880; 84484; 85025; 87081; 87426; 93005; 96374; 99285; J1940